=== PATIENT | female | born 1945 | race Caucasian/White ===

== ENCOUNTER 2016-12-01 13:32 | Outpatient (CLI) | payer BC ==
--- NOTE | 2016-12-01 14:14 | DIAGNOSTIC IMAGING REPORT ---
PROCEDURE: XR HAND 3 OR 4 VIEWS - LEFT INDICATION: L HAND PAIN TECHNIQUE: Four views. COMPARISON: None. FINDINGS: Osteoarthritis involving the distal interphalangeal joints. There is also osteoarthritis involving the first carpal metacarpal joint. Dystrophic calcifications also noted around the carpal bones medially. IMPRESSION: 1. Osteoarthritis.
== END 2016-12-01 23:00 ==
LOC: XR SRH 13:32
DX: M18.12 Unilateral primary osteoarthritis of first carpometacarpal joint, left hand (principal)